=== PATIENT | female | born 1930 | race Caucasian/White ===

== ENCOUNTER 2017-01-24 08:00 | Observation (INO) | payer MEDICARE, OTHER ==
[2017-01-22 11:30] LABS: ASPARTATE AMINO TRANSFERASE 13 U/L (15-37); BLOOD UREA NITROGEN 18 mg/dL (7-18)
[~2017-01-24] VITALS: Ht 168.9 cm; Wt 94.7 kg
[~2017-01-24 08:00] MED LIST: ACYC-114 PO; ALBU1.25 NEB; ALBU18HF INH; ALPR0.25 PO; ASPI-496 PO; ATOR20TA PO; ATOR20TA9 PO; BENA40TA2 PO; CEFD300C37 PO; CLOP75TA PO; DIPH25CA61 PO; DOXY100T PO; DULO30CA2 PO; FLUT1DIS3 INH; FURO20TA3 PO; FURO40TA6 PO; HYDR-3138 PO; HYDR-3240 PO; HYDR-3342 PO; METR500T PO; OMEP-110 PO; PREG25CA PO; PREG75CA PO; TELM40TA PO; TICA90TA PO; VERA240C2 PO
[2017-01-24 08:52] VITALS: BP 147/69
[2017-01-24] MEDS ORDERED: SODIUM CHLORIDE 0.9% 1,000 ML IV SCH (08:55)
[2017-01-24] MEDS ORDERED: BIVALIRUDIN 250 MG ONE (10:50)
[2017-01-24] MEDS ORDERED: MIDAZOLAM 1 MG/ML, 5ML ONE ×2 (10:52→12:15)
[2017-01-24] MEDS ORDERED: CLOPIDOGREL 75 MG TABLET ONE (10:53)
[2017-01-24] MEDS ORDERED: ATROPINE SYRINGE 0.1 MG/ML, 10ML ONE (10:53)
[2017-01-24] MEDS ORDERED: NALOXONE 1 MG/ML, 2ML ONE (10:53)
[2017-01-24] MEDS ORDERED: FENTANYL PF 100 MCG/2ML ONE (10:53)
[2017-01-24] MEDS ORDERED: FLUMAZENIL 0.1 MG/1 ML, 5ML ONE (10:53)
[2017-01-24] MEDS ORDERED: LIDOCAINE 2%, 20ML ONE (10:56)
[2017-01-24] MEDS ORDERED: VISIPAQUE 270 MG/ML, 150ML BOTTLE ONE (11:00)
[2017-01-24] MEDS ORDERED: ALBUTEROL SULFATE 2.5 MG/3 ML NPPB PRN (13:30)
[2017-01-24 15:09] VITALS: BP 174/70
[2017-01-24 20:04] VITALS: BP 186/87
[2017-01-24] MEDS ORDERED: ATORVASTATIN 20 MG TABLET PO SCH (21:00)
[2017-01-24] MEDS: OMEPRAZOLE 20 MG CAPSULE.DR PO SCH (21:33)
[2017-01-24] MEDS: BENAZEPRIL 20 MG TABLET PO SCH (21:34)
[2017-01-24] MEDS ORDERED: HYDROcodone/APAP 5/325 TABLET PO PRN (22:30)
[2017-01-24] MEDS ORDERED: hydrALAzine 20 MG/ML, 1ML IV PRN (22:30)
[2017-01-25 03:15] VITALS: BP 164/93
[2017-01-25] MEDS ORDERED: ASPIRIN 81 MG TABLET EC PO SCH (06:00)
[2017-01-25 07:09] VITALS: BP 170/69
[2017-01-25] MEDS: OMEPRAZOLE 20 MG CAPSULE.DR PO SCH (08:49)
[2017-01-25] MEDS: BENAZEPRIL 20 MG TABLET PO SCH (08:49)
[2017-01-25] MEDS ORDERED: VALSARTAN 160 MG TABLET PO SCH (09:00)
[2017-01-25] MEDS ORDERED: PREGABALIN 25 MG CAPSULE PO SCH (09:00)
[2017-01-25] MEDS ORDERED: VERAPAMIL ER 240MG TABLET.ER PO SCH (09:00)
[2017-01-25] MEDS ORDERED: FLUTICASONE/VILANTEROL 100-25MCG/INH INH SCH (09:00)
[2017-01-25] MEDS ORDERED: CLOPIDOGREL 75 MG TABLET PO SCH (09:00)
[2017-01-25] MEDS ORDERED: FUROSEMIDE 20 MG TABLET PO SCH (09:00)
[2017-01-25] MEDS ORDERED: DULOXETINE 30 MG CAPSULE.DR PO SCH (09:00)
[2017-01-25 10:22] VITALS: BP 155/71
== END 2017-01-25 12:19 | disposition home or self-care (01) ==
LOC: OUT 08:00 → 5SO 13:07 → OUT 21:21 → 5SO 21:23 → DCLOUNGE 01-25 11:30
PROVIDERS: ADMIT Internal Medicine Cardiovascular Disease; ATTEND Internal Medicine Cardiovascular Disease
DX: I65.23 Occlusion and stenosis of bilateral carotid arteries (principal); I35.0 Nonrheumatic aortic (valve) stenosis; I48.0 Paroxysmal atrial fibrillation; I73.9 Peripheral vascular disease, unspecified; E11.9 Type 2 diabetes mellitus without complications; I10 Essential (primary) hypertension; E78.2 Mixed hyperlipidemia; J44.9 Chronic obstructive pulmonary disease, unspecified
CPT/HCPCS: 36223; 36415; 37246; 80053; 85025; 85610; 85730; 99156; 99157; C1725; C1760; C1769; C1884; C1894; G0378; J0583; J2250; J3010; J3490; J7030; Q9966; J0461; J2310

== ENCOUNTER 2018-04-22 19:13 | Inpatient (IN) | payer MEDICARE, OTHER ==
[~2018-04-22] VITALS: Ht 167.6 cm; Wt 97.5 kg
[~2018-04-22 19:13] MED LIST changes: -BENA40TA2 PO; +BENA40TA3 PO; +FURO-92 PO; -HYDR-3138 PO; +HYDR-3237 PO; +MIRT15TA6 PO; +POTA20TA6 PO
[2018-04-22] MEDS ORDERED: SODIUM CHLORIDE FLUSH 10ML SYR IVF ONE (19:30)
[2018-04-22 20:21] LABS: BASOPHILS # (AUTO) 0.02 x10^3/uL (0-0.1); BASOPHILS % (AUTO) 0 % (0-1); EOSINOPHILS # (AUTO) 0.16 x10^3/uL (0-0.4); EOSINOPHILS % (AUTO) 1 % (1-7); LYMPHOCYTES # (AUTO) 1.23 x10^3/uL (1-3.4); LYMPHOCYTES % (AUTO) 11 % (22-44); MD NO; MEAN CORPUSCULAR HEMOGLOBIN 29.2 pg (27.0-34.8); MEAN CORPUSCULAR HGB CONC 33.2 g/dL (32.4-35.8); MEAN CORPUSCULAR VOLUME 87.9 fL (80-100); MEAN PLATELET VOLUME 10.1 fL (7.4-10.4); MONOCYTES # (AUTO) 0.88 x10^3/uL (0.2-0.8); MONOCYTES % (AUTO) 8 % (2-9); NEUTROPHILS # (AUTO) 8.99 x10^3/uL (1.8-6.8); NEUTROPHILS % (AUTO) 80 % (42-75); PLATELET COUNT 211 x10^3/uL (130-400); RED BLOOD COUNT 4.12 x10^6/uL (3.82-5.3)
[2018-04-22 20:27] LABS: INTERNATIONAL NORMALIZED RATIO 0.97 (0.93-1.1); PROTHROMBIN TIME 10.1 Seconds (9.6-11.5)
[2018-04-22 20:29] LABS: ALANINE AMINOTRANSFERASE 15 U/L (12-78); ALBUMIN 3.2 g/dL (3.4-5.0); ANION GAP 4 mmol/L (5-15); CALCIUM 9.1 mg/dL (8.5-10.1); CHLORIDE 108 mmol/L (98-107); CREATININE 0.89 mg/dL (0.55-1.02)
[2018-04-22 20:31] LABS: ALKALINE PHOSPHATASE 104 U/L (45-117); BILIRUBIN,TOTAL 0.4 mg/dL (0.2-1.0); TOTAL PROTEIN 6.6 g/dL (6.4-8.2)
[2018-04-22 20:35] LABS: TROPONIN I < 0.015 ng/mL (0.000-0.045)
[2018-04-22 21:13] LABS: MICROSCOPIC NOT IND
[2018-04-22 21:17] LABS: CULTURE INDICATED? NO
[2018-04-22] MEDS ORDERED: SODIUM CHLORIDE FLUSH 10ML SYR IVF PRN (22:00)
[2018-04-22] MEDS ORDERED: morphine SULFATE 10 MG/ML, 1ML IVPush PRN (23:00)
[2018-04-22] MEDS ORDERED: BISACODYL 10 MG SUPP PR PRN (23:00)
[2018-04-22] MEDS ORDERED: ONDANSETRON ODT 4 MG PO PRN (23:00)
[2018-04-22] MEDS ORDERED: PROMETHAZINE 25 MG/ML, 1ML IM PRN (23:00)
[2018-04-22] MEDS ORDERED: POLYETHYLENE GLYCOL 17 GM PACKET PO PRN (23:00)
[2018-04-22] MEDS ORDERED: LABETALOL 5MG/ML, 20ML IVPush PRN (23:00)
[2018-04-22] MEDS ORDERED: ONDANSETRON 2MG/ML, 2ML IVPush PRN (23:00)
[2018-04-22] MEDS: ATORVASTATIN 20 MG TABLET PO SCH (23:30)
[2018-04-22] MEDS ORDERED: TEMPLATE NON-FORMULARY MED. (Albuterol Sulfate (Ventolin Hfa) 2 PUFFS) INH PRN (23:30)
[2018-04-22 23:38] LABS: FREE T4 (FREE THYROXINE) 0.98 ng/dL (0.76-1.46); THYROID STIMULATING HORMONE 0.692 mIU/L (0.358-3.740)
[2018-04-22 23:46] LABS: HEMOGLOBIN A1C 5.7 % (4.2-6.3)
[2018-04-23] VITALS (8 sets, daily range): BP systolic 107–177; BP diastolic 58–74
[2018-04-23] MEDS: hydrALAzine 20 MG/ML, 1ML IVPush PRN (00:58)
[2018-04-23] MEDS ORDERED: ALBUTEROL SULFATE 2.5 MG/3 ML NPPB PRN (01:00)
[2018-04-23 05:43] LABS: BASOPHILS # (AUTO) 0.02 x10^3/uL (0-0.1); BASOPHILS % (AUTO) 0 % (0-1); EOSINOPHILS # (AUTO) 0.14 x10^3/uL (0-0.4); EOSINOPHILS % (AUTO) 2 % (1-7); LYMPHOCYTES % (AUTO) 13 % (22-44); MD NO; MEAN CORPUSCULAR HEMOGLOBIN 28.4 pg (27.0-34.8); MEAN CORPUSCULAR HGB CONC 32.6 g/dL (32.4-35.8); MEAN CORPUSCULAR VOLUME 87.2 fL (80-100); MEAN PLATELET VOLUME 10.2 fL (7.4-10.4); MONOCYTES % (AUTO) 9 % (2-9); NEUTROPHILS # (AUTO) 6.79 x10^3/uL (1.8-6.8); NEUTROPHILS % (AUTO) 76 % (42-75); PLATELET COUNT 191 x10^3/uL (130-400); RED BLOOD COUNT 3.95 x10^6/uL (3.82-5.3); RED CELL DISTRIBUTION WIDTH 16.3 % (9.6-15.2)
[2018-04-23 05:45] LABS: ANION GAP 4 mmol/L (5-15); CALCIUM 9.1 mg/dL (8.5-10.1); CHLORIDE 108 mmol/L (98-107)
[2018-04-23 05:49] LABS: ALANINE AMINOTRANSFERASE 14 U/L (12-78); ALKALINE PHOSPHATASE 98 U/L (45-117); BILIRUBIN,TOTAL 0.5 mg/dL (0.2-1.0); CHOL/HDL RATIO 2.8; CHOLESTEROL, TOTAL 124 mg/dL (140-239); CREATININE 0.69 mg/dL (0.55-1.02); HDL CHOL % 36 % (28-40); HDL CHOLESTEROL (DIRECT) 45 mg/dL (40-60); LDL CHOLESTEROL,CALCULATED 63 mg/dL (54-169); LDL/HDL RATIO 1.4 (0.5-3.0); TRIGLYCERIDES 81 mg/dL (50-200); VLDL CHOLESTEROL 16 mg/dL (0-25)
[2018-04-23] MEDS: CLOPIDOGREL 75 MG TABLET PO SCH (09:28)
[2018-04-23] MEDS: PREGABALIN 25 MG CAPSULE PO SCH (09:28)
[2018-04-23] MEDS: DULOXETINE 30 MG CAPSULE.DR PO SCH (09:28)
[2018-04-23] MEDS: FUROSEMIDE 20 MG TABLET PO SCH ×2 (09:29→18:19)
[2018-04-23] MEDS: ASPIRIN 81 MG TABLET EC PO SCH (09:29)
[2018-04-23] MEDS: POTASSIUM CHLORIDE 20 MEQ TAB.ER.PRT PO SCH (09:29)
[2018-04-23] MEDS: VERAPAMIL ER 240MG TABLET.ER PO SCH (11:23)
[2018-04-23] MEDS: ACETAMINOPHEN 325 MG TABLET PO PRN (11:25)
[2018-04-23] MEDS: ATORVASTATIN 20 MG TABLET PO SCH (21:38)
[2018-04-24 01:43] VITALS: BP 169/68
[2018-04-24 07:49] VITALS: BP 180/73
[2018-04-24] MEDS: hydrALAzine 20 MG/ML, 1ML IVPush PRN (07:55)
[2018-04-24] MEDS: VERAPAMIL ER 240MG TABLET.ER PO SCH (10:02)
[2018-04-24] MEDS: FUROSEMIDE 20 MG TABLET PO SCH ×2 (10:02→17:40)
[2018-04-24] MEDS: DULOXETINE 30 MG CAPSULE.DR PO SCH (10:02)
[2018-04-24] MEDS: CLOPIDOGREL 75 MG TABLET PO SCH (10:02)
[2018-04-24] MEDS: PREGABALIN 25 MG CAPSULE PO SCH (10:02)
[2018-04-24] MEDS: ASPIRIN 81 MG TABLET EC PO SCH (10:02)
[2018-04-24] MEDS: POTASSIUM CHLORIDE 20 MEQ TAB.ER.PRT PO SCH (10:03)
[2018-04-24 14:10] VITALS: BP 152/58
[2018-04-24] MEDS: DOCUSATE 100 MG CAPSULE PO PRN (17:44)
[2018-04-24 20:34] VITALS: BP 133/63
[2018-04-24] MEDS: FAMOTIDINE 20 MG TABLET PO SCH (21:51)
[2018-04-24] MEDS: ATORVASTATIN 20 MG TABLET PO SCH (21:51)
[2018-04-24] MEDS: ACETAMINOPHEN 325 MG TABLET PO PRN (23:45)
[2018-04-25 00:58] VITALS: BP 135/68
[2018-04-25 07:45] VITALS: BP 131/65
[2018-04-25] MEDS: PREGABALIN 25 MG CAPSULE PO SCH (08:56)
[2018-04-25] MEDS: CLOPIDOGREL 75 MG TABLET PO SCH (08:56)
[2018-04-25] MEDS: DULOXETINE 30 MG CAPSULE.DR PO SCH (08:56)
[2018-04-25] MEDS: FUROSEMIDE 20 MG TABLET PO SCH ×2 (08:57→16:18)
[2018-04-25] MEDS: ASPIRIN 81 MG TABLET EC PO SCH (08:57)
[2018-04-25] MEDS: POTASSIUM CHLORIDE 20 MEQ TAB.ER.PRT PO SCH (08:57)
[2018-04-25] MEDS: VERAPAMIL ER 240MG TABLET.ER PO SCH (08:57)
[2018-04-25 13:30] VITALS: BP 144/75
[2018-04-25 19:15] VITALS: BP 154/70
[2018-04-25] MEDS: FAMOTIDINE 20 MG TABLET PO SCH (21:58)
[2018-04-25] MEDS: ATORVASTATIN 20 MG TABLET PO SCH (21:58)
[2018-04-26 01:21] VITALS: BP 152/72
[2018-04-26 07:53] VITALS: BP 152/65
[2018-04-26] MEDS: POTASSIUM CHLORIDE 20 MEQ TAB.ER.PRT PO SCH (09:03)
[2018-04-26] MEDS: PREGABALIN 25 MG CAPSULE PO SCH (09:03)
[2018-04-26] MEDS: VERAPAMIL ER 240MG TABLET.ER PO SCH (09:04)
[2018-04-26] MEDS: DULOXETINE 30 MG CAPSULE.DR PO SCH (09:04)
[2018-04-26] MEDS: ASPIRIN 81 MG TABLET EC PO SCH (09:04)
[2018-04-26] MEDS: CLOPIDOGREL 75 MG TABLET PO SCH (09:04)
[2018-04-26] MEDS: FUROSEMIDE 20 MG TABLET PO SCH ×2 (09:04→16:38)
[2018-04-26] MEDS: DOCUSATE 100 MG CAPSULE PO PRN (09:04)
[2018-04-26 13:50] VITALS: BP 134/67
[2018-04-26 19:03] VITALS: BP 94/57
[2018-04-26 21:01] VITALS: BP 118/61
[2018-04-26] MEDS: ATORVASTATIN 20 MG TABLET PO SCH (21:33)
[2018-04-26] MEDS: FAMOTIDINE 20 MG TABLET PO SCH (21:33)
[2018-04-27] MEDS: ACETAMINOPHEN 325 MG TABLET PO PRN ×2 (01:24→10:49)
[2018-04-27 02:05] VITALS: BP 144/67
[2018-04-27 06:45] VITALS: BP 161/70
[2018-04-27] MEDS: FUROSEMIDE 20 MG TABLET PO SCH ×2 (09:23→16:24)
[2018-04-27] MEDS: VERAPAMIL ER 240MG TABLET.ER PO SCH (09:23)
[2018-04-27] MEDS: DULOXETINE 30 MG CAPSULE.DR PO SCH (09:23)
[2018-04-27] MEDS: CLOPIDOGREL 75 MG TABLET PO SCH (09:23)
[2018-04-27] MEDS: ASPIRIN 81 MG TABLET EC PO SCH (09:23)
[2018-04-27] MEDS: POTASSIUM CHLORIDE 20 MEQ TAB.ER.PRT PO SCH (09:23)
[2018-04-27] MEDS: PREGABALIN 25 MG CAPSULE PO SCH (09:23)
[2018-04-27] MEDS ORDERED: DIPHENHYDRAMINE 12.5MG/5ML, 10ML UDC PO ONE (10:00)
[2018-04-27] MEDS ORDERED: DIPHENHYDRAMINE 25 MG CAPSULE ONE (12:37)
[2018-04-27] MEDS ORDERED: DIPHENHYDRAMINE 25 MG CAPSULE PO ONE (13:00)
[2018-04-27 13:10] VITALS: BP 150/68
[2018-04-27] MEDS ORDERED: ONDA4TAB13 PO (15:44)
[2018-04-27] MEDS ORDERED: ACET325T14 PO (15:44)
[2018-04-27] MEDS ORDERED: HYDR-3342 PO (15:44)
[2018-04-27] MEDS ORDERED: BENA40TA3 PO (15:44)
[2018-04-27] MEDS ORDERED: VERA240T86 PO (15:44)
[2018-04-27] MEDS ORDERED: FURO20TA3 PO (15:44)
[2018-04-27] MEDS ORDERED: DOCU-131 PO (15:44)
[2018-04-27] MEDS ORDERED: FAMO20TA7 PO (15:44)
[2018-04-27] MEDS ORDERED: POTA20TA6 PO (15:44)
== END 2018-04-27 18:29 | DRG 307 ==
LOC: ED 19:34 → EDIP 21:50 → 4WST 04-23 00:26
PROVIDERS: ADMIT Internal Medicine; ATTEND Internal Medicine
PROC: BD11YZZ Fluoroscopy of Esophagus using Other Contrast (ICD-10-PCS; principal; 2018-04-24)
DX: I35.0 Nonrheumatic aortic (valve) stenosis (principal); J96.10 Chronic respiratory failure, unspecified whether with hypoxia or hypercapnia; R53.1 Weakness; I16.0 Hypertensive urgency; G89.11 Acute pain due to trauma; E78.5 Hyperlipidemia, unspecified; E11.41 Type 2 diabetes mellitus with diabetic mononeuropathy; G57.91 Unspecified mononeuropathy of right lower limb; I11.0 Hypertensive heart disease with heart failure; I50.9 Heart failure, unspecified; I25.10 Atherosclerotic heart disease of native coronary artery without angina pectoris; I69.30 Unspecified sequelae of cerebral infarction; J44.9 Chronic obstructive pulmonary disease, unspecified; R29.6 Repeated falls; W18.39XA Other fall on same level, initial encounter; Y93.89 Activity, other specified; Y92.89 Other specified places as the place of occurrence of the external cause; Y99.8 Other external cause status; Z87.891 Personal history of nicotine dependence; Z90.710 Acquired absence of both cervix and uterus; Z99.81 Dependence on supplemental oxygen; Z90.49 Acquired absence of other specified parts of digestive tract; M25.551 Pain in right hip; M25.561 Pain in right knee; Z88.6 Allergy status to analgesic agent; Z88.8 Allergy status to other drugs, medicaments and biological substances; Z91.048 Other nonmedicinal substance allergy status; K22.4 Dyskinesia of esophagus
CPT/HCPCS: 36415; 70450; 71045; 72146; 73523; 74220; 80053; 80061; 81003; 83036; 83735; 84439; 84443; 84484; 85025; 85610; 85730; 93005; 93306; 99285; G0378; Q0162; J0360; Q0163

== ENCOUNTER 2018-10-18 12:11 | Emergency (ER) | payer MEDICARE, OTHER ==
[~2018-10-18] VITALS: Ht 167.6 cm; Wt 78.0 kg
[~2018-10-18 12:11] MED LIST changes: +ACET325T14 PO; +ATOR20TA37 PO; -ATOR20TA9 PO; +DOCU-131 PO; +FAMO20TA7 PO; -MIRT15TA6 PO; +MIRT15TA94 PO; +ONDA4TAB13 PO; +VERA240T10 PO
[2018-10-18] MEDS ORDERED: LIDOCAINE-MPF 1%, 5ML INFIL ONE (13:00)
[2018-10-18] MEDS ORDERED: L.E.T SOLUTION TP ONE ×2 (13:00→13:05)
[2018-10-18] MEDS ORDERED: LIDOCAINE-MPF 1%, 5ML ONE (13:05)
--- NOTE | 2018-10-18 13:31 | NUR ---
RIGHT ELBOW TEAR AND RIGHT FOREHEAD LACERATION CLEANED BY TECH WITH NORMAL SALINE ONE LITER EACH WOUND. PT REMAINS A&O. LET GEL APPLIED TO FOREHEAD LACERATION. BLEEDING CONTROLLED.
[2018-10-18] MEDS ORDERED: LIDOCAINE 1%-EPI 1:100K, 30ML ONE (13:56)
[2018-10-18] MEDS ORDERED: LIDOCAINE 1%-EPI 1:100K, 50ML INFIL ONE (14:00)
--- NOTE | 2018-10-18 14:00 | NUR ---
LACERATION REPAIR FOREHEAD DONE BY PA. PT TOLERATED WELL
--- NOTE | 2018-10-18 14:32 | NUR ---
TASK RN: PT RESTING ON GURNEY. NADN. GODWIN.
[2018-10-18] MEDS ORDERED: BACITRACIN ZINC OINT 500U/GM, 0.9 GM ONE ×2 (14:59→16:12)
--- NOTE | 2018-10-18 15:00 | NUR ---
PT INCONTIENT OF STOOL AND CLEANED UP. TECH AT BEDSIDE PLACING STERI STRIPS RIGHT ELBOW AND BANDAGING HEAD WOUND.
--- NOTE | 2018-10-18 15:41 | NUR ---
AWAITING TRANSPORT HOME
[2018-10-18 17:00] VITALS: BP 164/72
--- NOTE | 2018-10-18 17:00 | NUR ---
PROVIDED SNACK. CONTINUES TO AWAIT TRANSPORT HOME
--- NOTE | 2018-10-18 17:54 | NUR ---
TEAM OF STAFF HELPED PT INTO WHEELCHAIR. PT STATES SHE IS GETTING MORE HELP AT HOME STARTING SATURDAY. PT STATES NEIGHBOR CAN HELP HER GET SETTLED WHEN SHE GETS HOME. DISCHARGED HOME WITH TRANSPORT PROVIDED BY [facility]
== END 2018-10-18 17:52 | disposition home or self-care (01) ==
LOC: ED 14:13
DX: S01.81XA Laceration without foreign body of other part of head, initial encounter (principal); S19.9XXA Unspecified injury of neck, initial encounter; E11.9 Type 2 diabetes mellitus without complications; I25.10 Atherosclerotic heart disease of native coronary artery without angina pectoris; I11.0 Hypertensive heart disease with heart failure; I50.9 Heart failure, unspecified; J44.9 Chronic obstructive pulmonary disease, unspecified; R51 Headache; Z90.49 Acquired absence of other specified parts of digestive tract; Z87.891 Personal history of nicotine dependence; Z90.710 Acquired absence of both cervix and uterus; Z79.899 Other long term (current) drug therapy; Z99.81 Dependence on supplemental oxygen; Z86.73 Personal history of transient ischemic attack (TIA), and cerebral infarction without residual deficits; W05.0XXA Fall from non-moving wheelchair, initial encounter; Y93.89 Activity, other specified; Y92.009 Unspecified place in unspecified non-institutional (private) residence as the place of occurrence of the external cause; Y99.8 Other external cause status
CPT/HCPCS: 12052; 70450; 72125; 99284